=== PATIENT | female | born 1955 | race Two or more races ===

== ENCOUNTER → 2025-01-09 | Outpatient (CLI) | payer MEDICARE, MEDICAID, SELFPAY ==
--- NOTE | 2025-01-09 11:00 | XR_ITS ---
Examination: Screening digital mammography, bilateral Computer aided detection 3-D breast Tomosynthesis, bilateral Date and time of exam: January 09, 2025 11:00 AM Compared to mammograms dating to September 14, 2016 Indication: Screening Technique: Nonmagnified MLO, CC views of the breasts to been obtained, reconstructed from 3-D Tomosynthesis images. R2 computer aided detection program utilized for evaluation of suspicious masses and/or abnormal calcifications. 3-D Tomosynthesis images obtained. Findings: Scattered areas of fibroglandular density. Benign calcifications. 8mm nodular asymmetry upper outer right breast Benign calcifications Impression: BI-RADS Category 0: Incomplete: Need additional imaging evaluation Recommend follow-up spot tomographic views of 8 mm nodular asymmetry upper outer right breast
== END | disposition home or self-care (01) ==
LOC: CDIM 10:46
PROVIDERS: Referring Provider Family Medicine; Visit Provider Family Medicine
DX: Z12.31 Encounter for screening mammogram for malignant neoplasm of breast (principal); N64.89 Other specified disorders of breast
CPT/HCPCS: 77063; 77067

== ENCOUNTER → 2025-03-26 | Outpatient (CLI) | payer MEDICARE, MEDICAID, SELFPAY ==
--- NOTE | 2025-03-26 11:00 | XR_ITS ---
Examination: Abdomen sonogram, complete Date and time of exam: March 26, 2025, 11:00 AM INDICATIONS: Left upper abdominal pain beginning 6 months ago. Technique: Multiple real-time grayscale transabdominal sonographic images of the abdomen have been obtained. Findings: Normal gallbladder. Normal common bile duct 0.4 cm. Pancreatic head 2.7 cm. Aorta not enlarged. Liver 11.7 cm no liver lesions Normal hepatopedal portal venous flow Patent IVC Right kidney 9.3 cm cortex 1.3 cm Left kidney 10.5 cm cortex 1.7 cm Mild renal scar formation Spleen 6.7 cm IMPRESSION: Normal gallbladder Small kidneys with bilateral renal cortical thinning Mild bilateral renal parenchymal scar formation
== END | disposition home or self-care (01) ==
LOC: CDIM 10:44
PROVIDERS: PCP Family Medicine; Referring Provider Student in an Organized Health Care Education/Training Program; Visit Provider Student in an Organized Health Care Education/Training Program
DX: N28.89 Other specified disorders of kidney and ureter (principal)
CPT/HCPCS: 76700

== ENCOUNTER 2025-05-13 12:03 | Outpatient (RCR) | payer MEDICARE, MEDICAID, SELFPAY ==
--- NOTE | 2025-05-13 12:30 | XR_ITS ---
Examination: HIDA, hepatobiliary radioisotope scan Gallbladder ejection fraction study. Date and time of exam: May 13, 2025, 1409 hours INDICATIONS: Sharp abdominal pain heartburn and reflux months Technique: 5.8 mCi of 99M Hepatolite administered. Serial imaging then obtained from immediate through 60 minutes. 1.4 mcg selective catheter Kinevac administered for gallbladder ejection fraction study. Findings: Radioisotope activity within the liver is reasonably homogenous. Gallbladder, common bile duct small bowel activity noted Impression: Gallbladder activity, normal gallbladder ejection fraction 86%
== END 2025-05-18 23:59 | disposition home or self-care (01) ==
LOC: SNUC 12:03
PROVIDERS: PCP Family Medicine; Referring Provider Internal Medicine Gastroenterology; Visit Provider Internal Medicine Gastroenterology
DX: R10.11 Right upper quadrant pain (principal); R10.13 Epigastric pain
CPT/HCPCS: 78227; A9537; J2805